=== PATIENT | female | born 1965 | race Caucasian/White ===

== ENCOUNTER → 2017-08-31 | Outpatient (CLI) | payer BC ==
--- NOTE | 2017-08-31 08:49 | REPMRS ---
Patient History The patient states she had a clinical breast exam in APRIL 2017.Family history of breast cancer in sister under age 50, breast cancer in mother at age 50 or over, ovarian cancer in mother under age 50, and colorectal cancer in mother at age 50 or over. Taking hormonal contraceptives. Digital Mammo Screening Bilat: August 31, 2017 - Exam #: [id number] Bilateral CC and MLO view(s) were taken. Technologist: Sara Montano, Technologist Prior study comparison: August 28, 2016, bilateral digital mammo screening bilat performed at [facility]. August 27, 2015, bilateral digital mammo screening bilat performed at [facility]. August 22, 2014, bilateral digital mammo screening bilat performed at [facility]. FINDINGS: There are scattered fibroglandular densities. There is a moderate amount of residual fibroglandular tissue which is fairly symmetric. There is no interval development of dominant mass, architectural distortion, or clustered microcalcification typical of malignancy. There has been no change in the appearance of the mammogram from the prior studies. ASSESSMENT: BI-RADS/ACR category 1 mammogram. Negative. Recommendation Breast MRI of both breasts in 6 months. This patient's Lifetime Breast Cancer Risk is estimated at 33%. Enhanced breast screening is indicated with anual Breast MRI as well as mammography. Routine screening mammogram of both breasts in 1 year (for women over age 40). This mammogram was interpreted with the aid of an FDA-approved computer-aided dectection system. Electronically Signed By: Steve Vazquez MD 08/31/17 [id number]
== END ==
LOC: M RAD 07:35
PROVIDERS: ATTEND Nurse Practitioner Family
DX: Z12.31 Encounter for screening mammogram for malignant neoplasm of breast (principal)

== ENCOUNTER 2017-11-07 13:00 | Emergency (ER) | payer BC ==
[~2017-11-07] VITALS: Ht 160 cm; Wt 72.7 kg
[2017-11-07 14:06] LABS: BASO # 0.1 10^3/uL (0.0-0.2); EOS # 0.2 10^3/uL (0.0-0.50); EOS % 2.8 % (0.0-3.0); IMMATURE GRANULOCYTE % 0.1 % (0-0); LYMPH # 1.5 10^3/uL (1.5-4.5); LYMPH % 22.1 % (24.0-44.0); MEAN CORPUSCULAR HEMOGLOBIN 31.6 pg (27.0-33.0); MEAN CORPUSCULAR HGB CONC 32.7 g/dl (32.0-36.5); MEAN CORPUSCULAR VOLUME 96.7 fl (80.0-96.0); MONO # 0.7 10^3/uL (0.0-0.8); MONO % 10.7 % (0.0-5.0); NEUTROPHILS # 4.2 10^3/uL (1.8-7.7); NEUTROPHILS % 63.3 % (36.0-66.0); PLATELET COUNT, AUTOMATED 258 10^3/uL (150-450); RED CELL DISTRIBUTION WIDTH 12.3 % (11.5-14.5); WHITE BLOOD COUNT 6.7 10^3/uL (4.0-10.0)
[2017-11-07 14:31] LABS: ALBUMIN 3.9 GM/DL (3.2-5.2); ALBUMIN/GLOBULIN RATIO 1.08 (1.00-1.93); ALKALINE PHOSPHATASE 77 U/L (45-117); ALT/SGPT 37 U/L (12-78); ANION GAP 7 MEQ/L (8-16); AST/SGOT 26 U/L (7-37); BILIRUBIN,DIRECT 0.2 MG/DL (0.0-0.2); BILIRUBIN,TOTAL 0.7 MG/DL (0.2-1.0); BLOOD UREA NITROGEN 13 MG/DL (7-18); CALCIUM LEVEL 8.7 MG/DL (8.5-10.1); CARBON DIOXIDE LEVEL 27 MEQ/L (21-32); CHLORIDE LEVEL 107 MEQ/L (98-107); CREATININE FOR GFR 0.72 MG/DL (0.55-1.02); GLOMERULAR FILTRATION RATE > 60.0 (>51); GLUCOSE, FASTING 111 MG/DL (70-105); MAGNESIUM LEVEL 2.2 MG/DL (1.8-2.4); POTASSIUM SERUM 3.7 MEQ/L (3.5-5.1); SODIUM LEVEL 141 MEQ/L (136-145); TOTAL PROTEIN 7.5 GM/DL (6.4-8.2)
[2017-11-07] MEDS ORDERED: DICL75TA PO (14:47)
[2017-11-07] MEDS ORDERED: CYCL10TA PO (14:47)
--- NOTE | 2017-11-07 14:48 | REP ---
REASON FOR EXAM: Pain after trauma. LUMBOSACRAL SPINE: FINDINGS: Five views of the lumbosacral spine show no acute fracture, dislocation or subluxation. The intervertebral disc spaces are symmetric and well maintained. There is no spondylolysis or spondylolisthesis. The pedicles are intact bilaterally and there is no destructive osseous lesion. IMPRESSION: Unremarkable lumbosacral spine series. There is age related mild posterior disc space narrowing at every level. Signed by Taye Levine DO 11/07/2017 02:48 P
[2017-11-07 14:57] VITALS: BP 122/82
== END 2017-11-07 15:04 | disposition home or self-care (01) ==
LOC: M ED 13:00
DX: M54.41 Lumbago with sciatica, right side (principal); R20.2 Paresthesia of skin; Z79.899 Other long term (current) drug therapy

== ENCOUNTER → 2018-05-21 | Outpatient (REF) | payer BC | LOC: M LAB REF 09:26 | DX: N39.0 Urinary tract infection, site not specified (principal) | CPT/HCPCS: 87086 ==

== ENCOUNTER → 2018-09-01 | Outpatient (CLI) | payer BC | LOC: M RAD 08:30 | DX: Z12.31 Encounter for screening mammogram for malignant neoplasm of breast (principal); N60.31 Fibrosclerosis of right breast; N60.32 Fibrosclerosis of left breast | CPT/HCPCS: 77067 ==

== ENCOUNTER → 2018-09-27 | Outpatient (REF) | payer BC | LOC: M SFHCWAGY 11:29 | DX: Z01.419 Encounter for gynecological examination (general) (routine) without abnormal findings (principal) | CPT/HCPCS: G0123 ==

== ENCOUNTER 2018-12-30 13:22 | Emergency (ER) | payer BC ==
[~2018-12-30] VITALS: Ht 160 cm; Wt 75.0 kg
[~2018-12-30 13:22] MED LIST: CYCL10TA PO; DICL75TA PO
[2018-12-30] MEDS ORDERED: ASPIRIN 81 MG CHEW TABLET PO ONE (14:15)
[2018-12-30 14:17] LABS: BASO # 0.1 10^3/uL (0.0-0.2); BASO % 0.8 % (0.0-1.0); EOS # 0.1 10^3/uL (0.0-0.50); HEMATOCRIT 39.9 % (36.0-47.0); HEMOGLOBIN 13.4 g/dl (12.0-15.5); LYMPH # 1.1 10^3/uL (1.5-4.5); LYMPH % 17.9 % (24.0-44.0); MEAN CORPUSCULAR HGB CONC 33.6 g/dl (32.0-36.5); MEAN CORPUSCULAR VOLUME 95.2 fl (80.0-96.0); MONO # 0.5 10^3/uL (0.0-0.8); MONO % 8.7 % (0.0-5.0); NEUTROPHILS # 4.4 10^3/uL (1.8-7.7); NEUTROPHILS % 71.4 % (36.0-66.0); PLATELET COUNT, AUTOMATED 233 10^3/uL (150-450); RED BLOOD COUNT 4.19 10^6/uL (4.00-5.40); WHITE BLOOD COUNT 6.2 10^3/uL (4.0-10.0)
[2018-12-30] MEDS ORDERED: GABA-843 PO (14:22)
[2018-12-30 14:37] LABS: INR 0.95; PROTHROMBIN TIME 12.8 SECONDS (12.1-14.4)
[2018-12-30 14:38] LABS: PARTIAL THROMBOPLASTIN TIME 27.8 SECONDS (25.4-37.6)
[2018-12-30 14:52] LABS: ALBUMIN 3.7 GM/DL (3.2-5.2); ALT/SGPT 45 U/L (12-78); BILIRUBIN,DIRECT 0.2 MG/DL (0.0-0.2); BILIRUBIN,TOTAL 0.9 MG/DL (0.2-1.0); BLOOD UREA NITROGEN 12 MG/DL (7-18); CALCIUM LEVEL 8.4 MG/DL (8.5-10.1); CARBON DIOXIDE LEVEL 25 MEQ/L (21-32); CHLORIDE LEVEL 108 MEQ/L (98-107); CPK CREATINE PHOSPHOKINASE 89 U/L (26-192); CREATININE FOR GFR 0.75 MG/DL (0.55-1.30); GLOMERULAR FILTRATION RATE > 60.0 (>51); GLUCOSE, FASTING 115 MG/DL (70-100); LIPASE 126 U/L (73-393); MB/CK RELATIVE INDEX 1.12 (< OR =4); SODIUM LEVEL 141 MEQ/L (136-145); TOTAL PROTEIN 6.5 GM/DL (6.4-8.2); TROPONIN I < 0.02 NG/ML (< 0.10)
[2018-12-30] MEDS: NITROGLYCERIN 0.4 MG SUBL TABLET SL PRN ×2 (15:07→15:11)
[2018-12-30 15:11] VITALS: BP 121/69
--- NOTE | 2018-12-30 15:20 | REP ---
CHEST: Two views. There is no evidence of acute infiltrate. No pleural effusion is seen. The heart is normal in size. The mediastinal silhouette is unremarkable. The visualized osseous structures are intact. IMPRESSION: No acute pulmonary disease. Electronically Signed by Tomas Pierce MD 12/30/2018 04:04 P
[2018-12-30] MEDS ORDERED: ISOVUE-370 76% 100ML VIAL (Q9967) As Ordered ONE (16:05)
--- NOTE | 2018-12-30 16:28 | REP ---
Clinical: Acute chest pain. Technique: Axial contrast enhanced images from the thoracic inlet to the upper abdomen using 100 ml Isovue 370 intravenous contrast material with coronal and sagittal re-formations. Findings: Satisfactory enhancement of the pulmonary vasculature is achieved and no filling defects are identified to suggest pulmonary embolus. Thoracic aorta is normal caliber without aneurysm or dissection. Heart and pericardium are normal. Bilateral lung mckay are relatively clear without acute pulmonary parenchymal consolidation or atelectasis. No nodule or mass lesion. No pleural effusion/reaction. No pneumothorax. No adenopathy. Impression: No evidence for pulmonary embolus. No acute pleuroparenchymal or mediastinal process. Electronically Signed by Simone Ponce MD 12/30/2018 04:19 P
[2018-12-30 20:13] LABS: CPK CREATINE PHOSPHOKINASE 73 U/L (26-192); MB/CK RELATIVE INDEX 1.37 (< OR =4); TROPONIN I < 0.02 NG/ML (< 0.10)
[2018-12-30 20:30] VITALS: BP 109/66
--- NOTE | 2018-12-31 08:41 | ECGEPIP ---
Stationary ECG Study [facility] - ED Test Date: 2018-12-30 Pat Name: TREMAINE RADER Department: Room: - Gender: F Marketing Mgr: MALATHI : 1965 Requested By: Melyssa Mane Order Number: [id number] Reading MD: Melyssa Mane Measurements Intervals Sod Rate: 87 P: 48 MD: 142 QRS: 37 QRSD: 94 T: 14 QT: 337 QTc: 407 Interpretive Statements SINUS RHYTHM NO PRIOR FOR COMPARISON Electronically Signed On 12-31-2018 8:41:33 EST by Melyssa Mane
== END 2018-12-30 21:01 | disposition home or self-care (01) ==
LOC: M ED 13:22
DX: R07.9 Chest pain, unspecified (principal); M79.601 Pain in right arm; R06.02 Shortness of breath; M54.5 Low back pain; Z79.899 Other long term (current) drug therapy
CPT/HCPCS: 71046; 71275; 80048; 80076; 82550; 82553; 83690; 84484; 85025; 85610; 85730; 93005; 93041; 94760; 99285; Q9967

== ENCOUNTER 2019-08-09 16:45 | Emergency (ER) | payer BC ==
[~2019-08-09] VITALS: Ht 160 cm; Wt 71.5 kg
[~2019-08-09 16:45] MED LIST changes: +GABA-843 PO
[2019-08-09] MEDS ORDERED: IBUP-1022 PO (16:50)
[2019-08-09] MEDS ORDERED: CYCL10TA PO (16:50)
[2019-08-09] MEDS ORDERED: LIDO1PAD TOP (17:30)
[2019-08-09] MEDS ORDERED: PRED20TA PO (17:30)
[2019-08-09] MEDS ORDERED: KETOROLAC 60 MG/2 ML VIAL (J1885) IM ONE (17:30)
[2019-08-09] MEDS ORDERED: NAPR-837 PO (17:30)
[2019-08-09] MEDS ORDERED: methylPREDNISolone INJ 125 MG/2 ML VIAL (J2930) IM ONE (17:30)
[2019-08-09] MEDS ORDERED: ROBA750T4 PO (17:30)
[2019-08-09 17:53] VITALS: BP 129/81
== END 2019-08-09 17:54 | disposition home or self-care (01) ==
LOC: M ED 16:45
DX: M54.31 Sciatica, right side (principal); M54.16 Radiculopathy, lumbar region; M51.26 Other intervertebral disc displacement, lumbar region
CPT/HCPCS: 96372; 99283; J1885; J2930

== ENCOUNTER → 2019-08-18 | Outpatient (CLI) | payer BC ==
[~2019-08-18] MED LIST changes: +IBUP-1022 PO; +LIDO1PAD TOP; +NAPR-837 PO; +PRED20TA PO; +ROBA750T4 PO
--- NOTE | 2019-08-18 14:12 | REPVR ---
PROCEDURE INFORMATION: Exam: MR Lumbar Spine Without Contrast. Exam date and time: 08/18/2019 7:32 AM Clinical history: 54 years old, female; Low back pain TECHNIQUE: Imaging protocol: Multiplanar magnetic resonance images of the lumbar spine without intravenous contrast. COMPARISON: CR Spine. Lumbosacral, complete 11/07/2017 2:11 PM FINDINGS: Vertebrae: There is an incidental 8 mm T1 and T2 bright focus in slightly to the left of midline in the body of L2 typical of hemangioma with fat suppression on the STIR images. Spinal cord: The conus medullaris is normal. L1-L2: No significant disc disease. No significant spinal stenosis. L2-L3: The L2-L3 level demonstrates a mild diffuse posterior disc herniation. There is a superimposed right subarticular herniation with compression of the descending right L3 nerve root but without foraminal compromise affecting the L2 nerve root. L3-L4: The L3-L4 level shows no evidence of a significant posterior disc herniation. L4-L5: The L4-L5 level demonstrates a mild diffuse posterior disc herniation. Annular fissure is noted at the caudal insertion on L5 in the midline on sagittal image 8 and axial image 19. There is mild short pedicle stenosis and moderate facet arthropathy. There is mild foraminal and moderate subarticular stenosis bilaterally. L5-S1: The L5-S1 level demonstrates a mild diffuse posterior disc herniation. There is superimposed right subarticular herniation extending to the lamina with compression of the descending right S1 nerve root. There is mild facet arthropathy and short pedicle stenosis with moderate right and mild left foraminal stenosis. Soft tissues: Unremarkable. Other findings: The lower thoracic and upper lumbar levels show no evidence of significant disc space narrowing, disc herniations, foraminal stenosis or canal compromise. IMPRESSION: 1. The L2-L3 level demonstrates a mild diffuse posterior disc herniation. There is a superimposed right subarticular herniation with compression of the descending right L3 nerve root but without foraminal compromise affecting the L2 nerve root. 2. The L4-L5 level demonstrates a mild diffuse posterior disc herniation. Annular fissure is noted at the caudal insertion on L5 in the midline on sagittal image 8 and axial image 19. There is mild short pedicle stenosis and moderate facet arthropathy. There is mild foraminal and moderate subarticular stenosis bilaterally. 3. The L5-S1 level demonstrates a mild diffuse posterior disc herniation. There is superimposed right subarticular herniation extending to the lamina with compression of the descending right S1 nerve root. There is mild facet arthropathy and short pedicle stenosis with moderate right and mild left foraminal stenosis. Electronically signed by: Candelario Gomez On 08/18/2019 14:12:35 PM
== END ==
LOC: M PLARAD 07:30
PROVIDERS: ATTEND Orthopaedic Surgery
DX: M54.5 Low back pain (principal)

== ENCOUNTER → 2019-12-11 | Outpatient (REF) | payer BC | LOC: M SFHCWAGY 17:29 | PROVIDERS: ATTEND Nurse Practitioner Family | DX: Z12.4 Encounter for screening for malignant neoplasm of cervix (principal) | CPT/HCPCS: 87624; G0123 ==

== ENCOUNTER → 2022-01-02 | Outpatient (REF) | payer OTHER ==
[~2022-01-02] MED LIST changes: +CYCL-707 PO; -CYCL10TA PO; +GABA-282 PO; -GABA-843 PO
== END ==
LOC: M WUC 11:28
PROVIDERS: ATTEND Physician Assistant Medical
DX: R30.0 Dysuria (principal)

== ENCOUNTER → 2022-02-06 | Outpatient (REF) | payer OTHER | LOC: M LAB REF 12:24 | PROVIDERS: ATTEND Physician Assistant | DX: R30.0 Dysuria (principal) ==

== ENCOUNTER → 2022-04-20 | Outpatient (REF) | payer OTHER ==
[2022-04-20 17:41] LABS: C REACTIVE PROTEIN QUANTITATIV < 0.30 MG/DL (0.00-0.30); RHEUMATOID FACTOR QUANT < 10.0 IU/ML (<15.0)
[2022-04-20 17:52] LABS: VITAMIN B12 LEVEL 226 PG/ML (247-911)
[2022-04-21 09:32] LABS: FREE T3 2.9 PG/ML (2.2-4.0)
== END ==
LOC: M LAB REF 16:01
PROVIDERS: ATTEND Nurse Practitioner Adult Health
DX: G60.9 Hereditary and idiopathic neuropathy, unspecified (principal); D48.5 Neoplasm of uncertain behavior of skin

== ENCOUNTER → 2022-04-21 | Outpatient (REF) | payer OTHER | LOC: M PLALAB 10:59 | PROVIDERS: ATTEND Obstetrics & Gynecology | DX: Z01.419 Encounter for gynecological examination (general) (routine) without abnormal findings (principal) ==

== ENCOUNTER → 2023-05-19 | Outpatient (REF) | payer OTHER | LOC: M SFHCWAGY 13:24 | PROVIDERS: ATTEND Obstetrics & Gynecology | DX: Z12.4 Encounter for screening for malignant neoplasm of cervix (principal); N95.2 Postmenopausal atrophic vaginitis | CPT/HCPCS: 87624; G0123 ==

== ENCOUNTER → 2024-02-09 | Outpatient (REF) | payer OTHER, BC | LOC: M LAB REF 15:16 | PROVIDERS: ATTEND Nurse Practitioner Adult Health | DX: D51.9 Vitamin B12 deficiency anemia, unspecified (principal) ==

== ENCOUNTER 2024-04-01 09:22 | Emergency (ER) | payer BC ==
[~2024-04-01] VITALS: Ht 160 cm; Wt 79.8 kg
[2024-04-01] MEDS ORDERED: ATOR80TA59 (09:31)
[2024-04-01 10:19] LABS: BASO # 0.1 10^3/uL (0.0-0.2); BASO % 1.8 % (0.0-1.0); EOS # 0.3 10^3/uL (0.0-0.5); EOS % 5.4 % (0.0-3.0); HEMATOCRIT 43.3 % (36.0-47.0); HEMOGLOBIN 14.3 g/dl (12.0-15.5); LYMPH # 1.5 10^3/uL (1.5-5.0); MEAN CORPUSCULAR HEMOGLOBIN 31.4 pg (27.0-33.0); MEAN CORPUSCULAR VOLUME 95.2 fl (80.0-96.0); MONO # 0.6 10^3/uL (0.0-0.8); MONO % 10.6 % (2.0-8.0); NEUTROPHILS # 3.1 10^3/uL (1.5-8.5); PLATELET COUNT, AUTOMATED 230 10^3/uL (150-450); RED BLOOD COUNT 4.55 10^6/uL (4.00-5.40); WHITE BLOOD COUNT 5.6 10^3/uL (4.0-10.0)
[2024-04-01 10:43] LABS: LIPASE 47 U/L (12-53)
[2024-04-01 10:44] LABS: ALBUMIN 4.1 G/DL (3.2-5.2); ALKALINE PHOSPHATASE 137 U/L (46-116); ALT/SGPT 39 U/L (7.0-40); AST/SGOT 32 U/L (<34); BILIRUBIN,DIRECT 0.4 MG/DL (<0.4); BILIRUBIN,TOTAL 1.1 MG/DL (0.3-1.2); BLOOD UREA NITROGEN 17 MG/DL (9-23); CALCIUM LEVEL 9.2 MG/DL (8.5-10.1); CARBON DIOXIDE LEVEL 26 MMOL/L (20-31); CHLORIDE LEVEL 106 MMOL/L (98-107); GLOMERULAR FILTRATION RATE > 60.0 (>51); GLUCOSE, FASTING 134 MG/DL (60-100); POTASSIUM SERUM 4.1 MMOL/L (3.5-5.1); SODIUM LEVEL 141 MMOL/L (136-145); TOTAL PROTEIN 6.8 G/DL (5.7-8.2)
[2024-04-01] MEDS: KETOROLAC 30 MG/ML 1ML VIAL IV ONE (10:55)
[2024-04-01] MEDS: GASTROGRAFIN SOLUTION 30ML PO SCH (12:42)
[2024-04-01] MEDS ORDERED: ISOVUE-370 76% 100ML VIAL As Ordered ONE (12:54)
[2024-04-01 15:55] VITALS: BP 132/81; TEMP 97.4; O2SAT 96
== END 2024-04-01 16:04 | disposition home or self-care (01) ==
LOC: M ED 09:22
DX: R10.9 Unspecified abdominal pain (principal); M50.30 Other cervical disc degeneration, unspecified cervical region; M51.36 Other intervertebral disc degeneration, lumbar region; G43.909 Migraine, unspecified, not intractable, without status migrainosus; F10.10 Alcohol abuse, uncomplicated; Z88.2 Allergy status to sulfonamides; Z79.02 Long term (current) use of antithrombotics/antiplatelets; Z79.1 Long term (current) use of non-steroidal anti-inflammatories (NSAID)
CPT/HCPCS: 74177; 76705; 80048; 80076; 81001; 83690; 85025; 96374; 99284; J1885; Q9963; Q9967

== ENCOUNTER → 2024-04-05 | Outpatient (CLI) | payer BC ==
[~2024-04-05] MED LIST changes: +ATOR80TA59
== END ==
LOC: M RAD 15:41
PROVIDERS: ATTEND Neurological Surgery
DX: M47.22 Other spondylosis with radiculopathy, cervical region (principal)

== ENCOUNTER 2024-11-15 18:35 | Emergency (ER) | payer BC ==
[~2024-11-15] VITALS: Ht 160 cm; Wt 78.3 kg
[~2024-11-15 18:35] MED LIST changes: +GABA-1172 PO; -GABA-282 PO
[2024-11-15] MEDS ORDERED: AMOX875T (18:56)
[2024-11-15 21:03] LABS: BASO # 0.1 10^3/uL (0.0-0.2); BASO % 1.3 % (0.0-1.0); EOS # 0.2 10^3/uL (0.0-0.5); EOS % 3.8 % (0.0-3.0); HEMATOCRIT 41.3 % (36.0-47.0); HEMOGLOBIN 13.6 g/dl (12.0-15.5); LYMPH # 1.8 10^3/uL (1.5-5.0); LYMPH % 33.7 % (24.0-44.0); MEAN CORPUSCULAR HEMOGLOBIN 31.7 pg (27.0-33.0); MEAN CORPUSCULAR HGB CONC 32.9 g/dl (32.0-36.5); MEAN CORPUSCULAR VOLUME 96.3 fl (80.0-96.0); MONO # 0.6 10^3/uL (0.0-0.8); NEUTROPHILS # 2.6 10^3/uL (1.5-8.5); PLATELET COUNT, AUTOMATED 240 10^3/uL (150-450); RED BLOOD COUNT 4.29 10^6/uL (4.00-5.40); WHITE BLOOD COUNT 5.3 10^3/uL (4.0-10.0)
[2024-11-15 21:05] LABS: CK-MB VALUE MASS < 1.0 NG/ML (<3.6)
[2024-11-15 21:06] LABS: BLOOD UREA NITROGEN 12 MG/DL (9-23); CALCIUM LEVEL 9.3 MG/DL (8.5-10.1); CARBON DIOXIDE LEVEL 28 MMOL/L (20-31); CHLORIDE LEVEL 107 MMOL/L (98-107); CPK CREATINE PHOSPHOKINASE 81 U/L (34-145); CREATININE FOR GFR 0.74 MG/DL (0.55-1.30); GLOMERULAR FILTRATION RATE > 60.0 (>51); GLUCOSE, FASTING 107 MG/DL (60-100); MB/CK RELATIVE INDEX 1.23 (< OR =4); SODIUM LEVEL 143 MMOL/L (136-145)
[2024-11-15] MEDS ORDERED: NITROGLYCERIN 0.4MG SUBL TABLET SL PRN (21:30)
[2024-11-15] MEDS: ASPIRIN 81MG CHEW TABLET PO ONE (21:45)
[2024-11-15] MEDS ORDERED: ISOVUE-370 76% 100ML VIAL As Ordered ONE (21:56)
[2024-11-15 22:30] LABS: CK-MB VALUE MASS < 1.0 NG/ML (<3.6)
[2024-11-15 22:35] LABS: CPK CREATINE PHOSPHOKINASE 74 U/L (34-145); MB/CK RELATIVE INDEX 1.35 (< OR =4)
[2024-11-16 00:09] VITALS: BP 125/80; TEMP 96.7; O2SAT 97
== END 2024-11-16 00:31 | disposition home or self-care (01) ==
LOC: M ED 18:35
DX: R07.9 Chest pain, unspecified (principal); M54.2 Cervicalgia; G43.909 Migraine, unspecified, not intractable, without status migrainosus; M54.50 Low back pain, unspecified; Z88.2 Allergy status to sulfonamides; Z79.2 Long term (current) use of antibiotics; Z79.02 Long term (current) use of antithrombotics/antiplatelets
CPT/HCPCS: 36415; 71045; 71275; 80048; 82550; 82553; 84484; 85025; 93005; 93041; 94760; 99285; Q9967

== ENCOUNTER → 2025-02-21 | Outpatient (REF) | payer BC ==
[~2025-02-21] MED LIST changes: +AMOX875T
== END ==
LOC: M LAB REF 17:12
PROVIDERS: ATTEND Nurse Practitioner Adult Health
DX: D51.9 Vitamin B12 deficiency anemia, unspecified (principal)